=== PATIENT | female | born 1985 | race African-American/Black ===

== ENCOUNTER 2018-02-16 00:29 | Emergency (ER) | payer SELFPAY ==
[~2018-02-16] VITALS: Ht 167.6 cm; Wt 101.8 kg
[~2018-02-16 00:29] MED LIST: CAMILA0.35 MG PO; ENDOCET 5-3251 EACH PO; FERROCITE324 MG PO; IBUPROFEN800 MG PO; PRENATAL TABLE1 EAC3 PO
[2018-02-16 01:41] LABS: HEMATOCRIT 33.7 % (36.0-46.0); HEMOGLOBIN 11.8 G/DL (11.9-15.5); MCH 32.7 PG (29.0-34.0); MCV 93.4 FL (83-99); PLATELET COUNT 277 K/uL (156-360); RBC DIS.WIDTH-SD 47.8 % (39-53); RED BLOOD COUNT 3.61 M/uL (3.80-5.20); WHITE BLOOD COUNT 7.7 K/uL (4.1-10.2)
[2018-02-16 01:51] LABS: ALBUMIN 3.8 g/dL (3.2-4.8); CHLORIDE 106 mEq/L (99-109); POTASSIUM 3.2 mEq/L (3.7-5.4); SODIUM 141 mEq/L (136-147)
[2018-02-16 01:53] LABS: GLUCOSE 111 mg/dL (70-99); TOTAL PROTEIN 6.5 g/dL (6.4-8.3)
[2018-02-16 01:55] LABS: TOTAL BILIRUBIN 0.6 mg/dL (0.0-1.0)
[2018-02-16 01:57] LABS: ALKALINE PHOSPHATASE 67 IU/L (3-129); CREATININE 0.8 mg/dL (0.6-1.3); GFR ESTIMATE (CALCULATED) > 59 mL/min/
[2018-02-16 01:58] LABS: UREA NITROGEN (BUN) 14 mg/dL (9-23)
[2018-02-16 01:59] LABS: AST (GOT) 14 IU/L (2-34)
[2018-02-16 02:00] LABS: ALT (GPT) 13 IU/L (3-49)
[2018-02-16 02:12] LABS: QUANTITATIVE HCG < 4.0 MIU/ML
[2018-02-16 05:07] VITALS: BP 142/88
== END 2018-02-16 05:09 | disposition home or self-care (01) ==
LOC: EME 00:29
PROVIDERS: Physician Assistant
DX: H57.12 Ocular pain, left eye (principal); H57.8 Other specified disorders of eye and adnexa; R51 Headache; F17.200 Nicotine dependence, unspecified, uncomplicated
CPT/HCPCS: 70481; 80053; 84702; 85027; 99281; 99285; J2405; J3010; J7030